=== PATIENT | female | born 1985 | race Caucasian/White ===

== ENCOUNTER 2023-07-23 16:42 | Emergency (ER) | payer BC, OTHER ==
[~2023-07-23] VITALS: Ht 162.6 cm; Wt 65.0 kg
[2023-07-23 17:08] VITALS: O2SAT 99
[2023-07-23 17:29] LABS: BASOPHILS % 0.5 % (0.0-2.0); DIFFERENTIAL COMMENT 0; EOSINOPHILS % 2.7 % (0.0-5.0); HEMATOCRIT. 37.4 % (36.0-48.0); HEMOGLOBIN. 11.9 g/dL (12.0-16.0); LYMPHOCYTES % 15.8 % (20.0-50.0); MEAN CORPUSCULAR HEMOGLOBIN 25.4 pg (28.0-32.0); MEAN CORPUSCULAR HGB CONC 31.8 g/dL (31.0-37.0); MEAN CORPUSCULAR VOLUME 79.9 fL (81.0-99.0); MEAN PLATELET VOLUME 8.6 fl (7.4-10.4); MONOCYTES % 6.8 % (2.0-8.0); NEUTROPHILS % 74.2 % (40.0-76.0); PLATELET 366 x1000/uL (130-400); RED BLOOD CELL COUNT 4.68 mill/uL (4.2-5.4); RED CELL DISTRIBUTION WIDTH 14.3 % (11.6-14.6); WHITE BLOOD COUNT 14.2 x1000/uL (4.5-11.0)
[2023-07-23] MEDS ORDERED: METOCLOPRAMIDE HCL 10MG TABLET PO ONE (17:30)
[2023-07-23] MEDS ORDERED: ACETAMINOPHEN 325MG TABLET PO ONE (17:30)
[2023-07-23 17:44] LABS: HCG SCREEN NEGATIVE
[2023-07-23 17:45] LABS: ALANINE AMINOTRANSFERASE < 7 IU/L (10-49); ALBUMIN 4.5 g/dL (3.2-4.8); ASPARTATE AMINOTRANSFERASE 13 IU/L (<34); BILIRUBIN TOTAL 0.3 mg/dL (0.1-1.0); CALCIUM 9.4 mg/dL (8.7-10.4); CARBON DIOXIDE 23 mEq/L (21-32); CHLORIDE 106 mEq/L (98-107); CREATININE 0.6 mg/dL (0.6-1.0); GLUCOSE 134 mg/dL (70-105); POTASSIUM 3.6 mEq/L (3.5-5.1); PROTEIN TOTAL 7.6 g/dL (6.0-8.3); SODIUM 135 mEq/L (136-145); UREA NITROGEN BLOOD 8 mg/dL (9-23)
[2023-07-23 17:50] LABS: TROPONIN I HIGH SENSITIVITY < 4 ng/L (3.0-34)
[2023-07-23] MEDS ORDERED: ACETAMINOPHEN 325MG TABLET PO NR (20:30)
[2023-07-23] MEDS ORDERED: METOCLOPRAMIDE HCL 10MG TABLET PO NR (20:30)
[2023-07-23 20:42] VITALS: BP 123/74; PULSE 69; RESP 18; TEMP 98.8
[2023-07-23 20:59] LABS: CLARITY URINE CLEAR (CLEAR); COLOR URINE YELLOW (YELLOW); GLUCOSE URINE NEGATIVE (NEGATIVE); KETONES URINE 1+ (NEGATIVE); LEUKOCYTE ESTERASE URINE NEGATIVE (NEGATIVE); NITRITE URINE NEGATIVE (NEGATIVE); OCCULT BLOOD URINE NEGATIVE (NEGATIVE); PROTEIN URINE NEGATIVE (NEGATIVE); SPECIFIC GRAVITY URINE 1.018 (1.005-1.030); UROBILINOGEN URINE 0.2 E.U./dL (0.2-1.0)
== END 2023-07-23 20:47 | disposition home or self-care (01) ==
LOC: ER 16:42
DX: R42 Dizziness and giddiness (principal); R51.9 Headache, unspecified
CPT/HCPCS: 99285; 70450; 80053; 81003; 81025; 84703; 85025; 84484; 36415; 93005; J8597

== ENCOUNTER 2025-07-11 10:08 | Emergency (ER) | payer BC ==
[~2025-07-11] VITALS: Ht 160 cm; Wt 73.0 kg
[2025-07-11 10:15] VITALS: O2SAT 99
[2025-07-11 10:32] VITALS: BP 168/89; PULSE 90; RESP 16; TEMP 36.6; O2SAT 98
[2025-07-11] MEDS ORDERED: IBUP-2030 MT (11:19)
[2025-07-11] MEDS ORDERED: CLIN-194 MT (11:19)
[2025-07-11] MEDS: OXYCODONE HCL/ACETAMINOPHEN 5/325MG TABLET PO ONE (11:27)
[2025-07-11] MEDS: KETOROLAC 30MG/ML VIAL IM ONE (11:27)
== END 2025-07-11 11:50 | disposition home or self-care (01) ==
LOC: ER 10:08
DX: K08.89 Other specified disorders of teeth and supporting structures (principal)
CPT/HCPCS: 99283; 81025; 96372; J1885